=== PATIENT | female | born 1960 | race Asian ===

== ENCOUNTER → 2017-04-05 | Outpatient (CLI) | payer BC | LOC: FIMAGING 08:08 | PROVIDERS: ATTEND Internal Medicine | DX: Z12.31 Encounter for screening mammogram for malignant neoplasm of breast (principal) ==

== ENCOUNTER → 2018-05-07 | Outpatient (CLI) | payer BC | LOC: FIMAGING 08:02 | PROVIDERS: ATTEND Internal Medicine | DX: Z12.31 Encounter for screening mammogram for malignant neoplasm of breast (principal) ==